=== PATIENT | male | born 1995 | race Caucasian/White ===

== ENCOUNTER 2018-06-16 14:31 | Outpatient (CLI) ==
--- NOTE | 2018-06-16 15:12 | DI ---
EXAM: Two views of the chest. History: Chest pain. Findings: Heart size is normal. No focal consolidation. No appreciable pleural fluid and no pneumo thorax. No acute osseous abnormalities. Impression: No acute cardiopulmonary process
== END 2018-06-16 14:32 | disposition home or self-care (01) ==
LOC: RHC-LAB 14:31 → FCC-LAB 14:32
PROVIDERS: ATTEND Family Medicine
DX: R68.89 Other general symptoms and signs (principal); Z77.098 Contact with and (suspected) exposure to other hazardous, chiefly nonmedicinal, chemicals
CPT/HCPCS: 87502

== ENCOUNTER 2018-06-17 10:19 | Outpatient (CLI) | END 2018-06-17 10:20 | disposition home or self-care (01) | LOC: LAB 10:19 | PROVIDERS: ATTEND Family Medicine | DX: R68.89 Other general symptoms and signs (principal) | CPT/HCPCS: 87502 ==